=== PATIENT | male | born 1945 | race Hispanic/Latino ===

== ENCOUNTER 2016-06-21 08:43 | Outpatient (CLI) | payer MEDICARE, MEDICAID ==
[2016-06-21 09:06] LABS: #Basophils 0.1 thou/uL (0.0-0.2); #Eosinphils 0.5 thou/uL (0.0-0.7); #Lymphocytes 2.7 thou/uL (1.20-3.40); #Monocytes 0.7 thou/uL (0.11-0.59); #Neutrophils 3.2 thou/uL (1.40-6.50); %Basophils 1.1 % (0.0-1.0); %Eosinophils 7.2 % (0.0-10.0); %Lymphocytes 37.1 % (21.0-51.0); %Monocytes 9.7 % (0.0-10.0); Hematocrit 41.9 % (42.0-52.0); Mean Platelet Volume 8.4 fL (7.4-10.4); White Blood Cell (WBC) Count 7.2 thou/uL (4.8-10.8)
[2016-06-21 09:13] LABS: ALT (SGPT) 15 U/L (0-55); AST (SGOT) 15 U/L (5-34); Alkaline Phosphatase 44 U/L (40-150); Anion Gap 10 mmol/L (10-20); BUN (Urea Nitrogen) 25 mg/dL (8.4-25.7); Bilirubin, Total 0.6 mg/dL (0.2-1.2); Calc. Creatinine Clearance 0 mL/min (70-130); Calcium 8.8 mg/dL (7.8-10.44); Carbon Dioxide 27 mmol/L (23-31); Chloride 106 mmol/L (98-107); Estimated GFR-MDRD Greater than 90; Globulin 2.6 g/dL (2.4-3.5); LDL Cholesterol, Calculated 92 mg/dL
[2016-06-21 09:38] LABS: Hemoglobin A1c 5.1 % (4.0-6.0)
== END 2016-06-21 08:44 ==
LOC: NAVSJIPCSP 08:43
PROVIDERS: ATTEND Internal Medicine
DX: I10 Essential (primary) hypertension (principal); Z79.899 Other long term (current) drug therapy
CPT/HCPCS: 80053; 80061; 83036; 84443; 85025

== ENCOUNTER 2016-09-06 07:10 | Outpatient (CLI) | payer MEDICARE, OTHER ==
[2016-09-06 07:52] LABS: #Basophils 0.1 thou/uL (0.0-0.2); #Eosinphils 0.6 thou/uL (0.0-0.7); #Lymphocytes 3.5 thou/uL (1.20-3.40); #Monocytes 0.6 thou/uL (0.11-0.59); #Neutrophils 2.5 thou/uL (1.40-6.50); %Basophils 1.4 % (0.0-1.0); %Eosinophils 8.7 % (0.0-10.0); %Lymphocytes 47.7 % (21.0-51.0); %Monocytes 8.2 % (0.0-10.0); Hemoglobin 14.3 g/dL (14.0-18.0); Mean Corpuscular HGB CONC 33.3 g/dL (32.0-36.0); Mean Corpuscular Hemoglobin 32.7 pg (27.0-31.0); Mean Corpuscular Volume 98.1 fl (80.0-94.0); Mean Platelet Volume 8.7 fL (7.4-10.4); Platelet Count 183 thou/uL (130-400); RBC Distribution Width 11.6 % (11.5-14.5); Red Blood Cell (RBC) Count 4.37 mill/uL (4.70-6.10); White Blood Cell (WBC) Count 7.4 thou/uL (4.8-10.8)
[2016-09-06 07:59] LABS: Anion Gap 10 mmol/L (10-20); BUN (Urea Nitrogen) 24 mg/dL (8.4-25.7); Calc. Creatinine Clearance 0 mL/min (70-130); Calcium 8.2 mg/dL (7.8-10.44); Carbon Dioxide 29 mmol/L (23-31); Chloride 103 mmol/L (98-107); Estimated GFR-MDRD Greater than 90; Glucose 84 mg/dL (83-110); Potassium 3.9 mmol/L (3.5-5.1); Sodium 138 mmol/L (136-145)
== END 2016-09-06 07:11 | disposition home or self-care (01) ==
LOC: NAV LABSP 07:10
PROVIDERS: ATTEND Internal Medicine
DX: I10 Essential (primary) hypertension (principal); I25.9 Chronic ischemic heart disease, unspecified
CPT/HCPCS: 36415; 80048; 85025

== ENCOUNTER 2016-09-24 15:03 | Outpatient (CLI) | payer MEDICARE, OTHER | END 2016-09-24 15:04 | disposition home or self-care (01) | LOC: NAV NNR 15:03 | PROVIDERS: ATTEND Internal Medicine | DX: S91.109A Unspecified open wound of unspecified toe(s) without damage to nail, initial encounter (principal); I73.9 Peripheral vascular disease, unspecified; S91.104A Unspecified open wound of right lesser toe(s) without damage to nail, initial encounter | CPT/HCPCS: 87070; 87205 ==